=== PATIENT | male | born 1975 | race Two or more races ===

== ENCOUNTER 2025-01-17 09:48 | Emergency (ER) | payer OTHER ==
[~2025-01-17] VITALS: Ht 175.3 cm; Wt 79.4 kg
[2025-01-17 10:03] VITALS: BP 157/100; TEMP 97.9
[2025-01-17] MEDS ORDERED: MUPI22OI7 TP (10:23)
[2025-01-17 10:27] VITALS: O2SAT 99
== END 2025-01-17 10:28 | disposition home or self-care (01) ==
LOC: ER 09:56
DX: M79.644 Pain in right finger(s) (principal); R20.0 Anesthesia of skin; L98.8 Other specified disorders of the skin and subcutaneous tissue; Z60.2 Problems related to living alone